=== PATIENT | male | born 1965 | race Caucasian/White ===

== ENCOUNTER 2017-03-02 13:41 | Emergency (ER) | payer BC ==
--- NOTE | 2017-03-02 13:50 | Emergency Department Record ---
History of Present Illness - General Chief complaint: Lower Extremity Pain Stated complaint: LOWER L LEG PAIN Time Seen by Provider: 03/02/17 13:44 Source: Patient Mode of Arrival: Ambulatory Limitations: No limitations - History of Present Illness Initial comments: 51 yo male presents from the [facility] with a concern about calf swelling and pain for several days on the left. He reports he had shoulder surgery in November and has been less active. He denies chest pain but he has noticed the last 2 weeks that he is short of breath with activity that he just started doing again. He has been fairly inactive since the surgery. In the last few weeks since starting some activity again he get short of breath easily. No fevers or chills. No history of DVT or CAD. MD Complaint: Extremity swelling -: Days(s) Location: Left -: Yes Myalgia Radiation: Distal Quality: Aching Consistency: Constant Improves with: Immobilization Worsens with: Exertion, Palpation, Walking, Weight bearing Associated Symptoms: Shortness of breath - Related Data Allergies Allergy/AdvReac Type Severity Reaction Status Date / Time codeine Allergy Intermediate vomiting Verified 03/02/17 13:52 Review of Systems Constitutional: Reports: Malaise. Denies: Chills, Fever Eyes: Denies: Eye discharge, Eye pain, Photophobia, Vision change ENT: Denies: Congestion, Throat pain Respiratory: Reports: Dyspnea. Denies: Cough, Hemoptysis, Wheezes Cardiovascular: Reports: Dyspnea on exertion, Palpitations. Denies: Chest pain , Syncope Endocrine: Reports: Fatigue Gastrointestinal: Denies: Abdominal pain, Diarrhea, Nausea, Vomiting Genitourinary: Denies: Dysuria, Frequency, Hematuria, Testicular mass Musculoskeletal: Reports: As per HPI, Myalgia. Denies: Arthralgia, Back pain, Joint swelling, Neck pain Skin: Denies: Bruising, Change in color, Rash Neurological: Denies: Numbness, Weakness Psychiatric: Denies: Anxiety Hematological/Lymphatic: Denies: Blood Clots, Easy bleeding, Easy bruising, Swollen glands Physical Exam - General General Appearance: Alert, Oriented x3, Cooperative, No acute distress Limitations: No limitations - Head Head exam: Normal inspection - Eye Eye exam: Normal appearance. negative: Conjunctival injection, Periorbital swelling - ENT ENT exam: Normal exam, Mucous membranes moist Ear exam: Normal external inspection Nasal Exam: Normal inspection Mouth exam: Normal external inspection - Neck Neck exam: Normal inspection - Respiratory Respiratory exam: Normal lung sounds bilaterally. negative: Respiratory distress - Cardiovascular Cardiovascular Exam: Normal rhythm, Normal heart sounds, Tachycardia Peripheral Pulses: 2+: Radial (R), Radial (L), Dorsalis Pedis (L) - GI/Abdominal GI/Abdominal exam: Soft. negative: Tenderness - Rectal Rectal exam: Deferred - exam: Deferred - Extremities Extremities exam: Calf tenderness (left), Full ROM, Normal capillary refill, Tenderness - Back Back exam: Reports: Normal inspection, Full ROM. Denies: Muscle spasm, Rash noted, Tenderness - Neurological Neurological exam: Alert, Normal gait, Oriented X3 - Psychiatric Psychiatric exam: Normal affect, Normal mood. negative: Agitated, Anxious - Skin Skin exam: Dry, Intact, Normal color, Warm Course - Reevaluation(s) Reevaluation #1: 03/02/17 14:14 No cute changes on the CBC or CMP 03/02/17 14:31 EKG 14:19 Sinus rhythm at 99, intervals normal, axis normal, Anterioir inverted T waves with Q wave in III 03/02/17 14:50 Troponin is normal with BNP elevated at 809. 03/02/17 15:14 CT with bilateral PE's throughout the lungs including both main right and left pulmonary arteries The patient will be transferred given the extent of emboli HR 100, BP 110's systolic. Resting comfortably [place] [facility] [place]02[place]17 15:31 I MADI Castro of [place] [facility] [place] patient for [place]. Medical Decision Making - Lab Data Result diagrams: 03/02/17 13:50 03/02/17 13:50 Disposition Disposition: Transfer Clinical Impression: Pulmonary emboli Qualifiers: Pulmonary embolism type: other Chronicity: acute Acute cor pulmonale presence: with acute cor pulmonale Qualified Code(s): I26.09 - Other pulmonary embolism with acute cor pulmonale Disposition: Acute Care Hospital [place] [facility] [place] For Transfer: PE, Bilateral Accepting Physician: Gloria Time Discussed w/Accepting Physician: 15:30 Condition: (3) Guarded Forms: Patient Portal Access Time of Disposition: 15:15 Quality - Quality Measures Quality Measures: N/A - Blood Pressure Screening Does Patient Have Any of the Following: No Blood Pressure Classification: Normal BP Reading Systolic Measurement: 111 Diastolic Measurement: 72 Screening for High Blood Pressure: < Normal BP, F/U Not Required > [G5839]
[2017-03-02 14:10] LABS: BASO % 0.2 % (0-6); EOS % 1.5 % (0-6); GRAN % 69.1 % (47-80); HEMOGLOBIN 15.6 gm/dl (14.0-18.0); LYMPH % 18.8 % (16-45); MEAN CELL VOLUME 89.3 fl (81-97); MEAN CORPUSCULAR HEMOGLOBIN 30.3 pg (27-33); MEAN CORPUSCULAR HGB CONC 33.9 g/dl (32-36); MEAN PLATELET VOLUME 10.5 fl (7.4-10.4); MONO % 10.4 % (0-9); PLATELET COUNT 144 K/uL (130-400); RED BLOOD COUNT 5.15 M/uL (4.40-5.70); RED CELL DISTRIBUTION WIDTH 12.7 % (11.5-14.5); WHITE BLOOD COUNT W/O DIFF 8.6 K/uL (4.2-12.2)
[2017-03-02 14:11] LABS: BLOOD UREA NITROGEN 9 mg/dL (6-20); EST GLOMERULAR FILTRATION RATE > 60 mL/min; GLUCOSE,RANDOM 117 mg/dL (74-109)
[2017-03-02 14:13] LABS: INR 1.07; PARTIAL THROMBOPLASTIN TIME 26.7 SECONDS (24.5-39.1); PROTHROMBIN TIME (PATIENT) 11.6 SECONDS (9.5-12.1)
[2017-03-02] MEDS ORDERED: ASPIRIN 81 MG CHEWABLE TABLET PO ONE (14:32)
[2017-03-02 14:46] LABS: TROPONIN I < 0.30 ng/mL (0.00-0.300)
[2017-03-02] MEDS ORDERED: HEPARIN SODIUM 1000 UNIT/1 ML 10ML VIAL IVP ONE (14:53)
[2017-03-02] MEDS ORDERED: HEPARIN SODIUM/D5W 25,000 UNITS/500 ML BAG IV SCH (15:00)
--- NOTE | 2017-03-03 14:55 | CT ANGIOGRAM REPORT ---
DATE: 03/02/2017. EXAM: CT ANGIOGRAM OF THE CHEST. HISTORY: Difficulty breathing. TECHNIQUE: CT angiogram of the chest was performed using pulmonary embolus protocol following intravenous administration of 85 mL of Omnipaque 350 contrast. Axial images were obtained with coronal and sagittal MIP reconstructions. COMPARISON: None. FINDINGS: Extensive filling defect consistent with extensive bilateral pulmonary emboli is present in the main pulmonary arteries as well as in bilateral upper and lower lobe arterial segments. The heart is mildly enlarged. No mediastinal or hilar adenopathy. Limited evaluation of the upper abdomen shows probable fatty infiltrative change to the liver. Osseous structures are grossly intact. No pneumothorax. The visualized airways are patent. The lungs are clear. IMPRESSION: EXTENSIVE BILATERAL PULMONARY EMBOLI. JOB NUMBER: [id number] [facility]
== END 2017-03-02 16:17 | disposition short-term general hospital (02) ==
LOC: ER 13:41
DX: I26.09 Other pulmonary embolism with acute cor pulmonale (principal); R06.02 Shortness of breath; I10 Essential (primary) hypertension
CPT/HCPCS: 99285; 96365; 96375; 99284; 85025; 85730; 85610; 84484; 80048; 83880; 71275; 93005; 93010; Q9967

== ENCOUNTER 2017-03-07 13:39 | Emergency (ER) | payer BC ==
--- NOTE | 2017-03-07 14:14 | Emergency Department Record ---
History of Present Illness - General Chief complaint: Lower Extremity Pain Stated complaint: LT CALF PAIN Time Seen by Provider: 03/07/17 13:57 Source: Patient, RN notes reviewed Mode of Arrival: Ambulatory - History of Present Illness Initial comments: patient compalianing about left calf and slight left medial thigh pain and mar 02, he was diagnosesd with bilateral PE and treated at [facility] and currently on xarelto 15 mg BID. patient states his breathing is good and that is better and the leg was painful also on mar 02 and he was told probably DVT of the left leg but treatment the same and he was concerned today because his leg is more painful today. patient used a norco last night and that helped his pain. Onset/Timin -: Days(s) Location: Left, Lower Leg Severity scale (1-10): 8 Quality: Aching, Dull Consistency: Constant Improves with: Nothing Worsens with: Nothing Associated Symptoms: Denies other symptoms - Related Data Home Medications Medication Instructions Recorded Confirmed Last Taken Rivaroxaban [Xarelto] 15 mg PO DAILY 03/07/17 03/07/17 Unknown Allergies Allergy/AdvReac Type Severity Reaction Status Date / Time codeine Allergy Intermediate vomiting Verified 03/02/17 13:52 Travel Screening - Travel/Exposure Within Last 30 Days Have you traveled within the last 30 days?: No Review of Systems Reviewed: No additional complaints except as noted below Constitutional: Reports: As per HPI. Denies: Chills, Fever, Malaise, Night sweats, Weakness, Weight change Eyes: Reports: As per HPI. Denies: Eye discharge, Eye pain, Photophobia, Vision change ENT: Reports: As per HPI. Denies: Congestion, Dental pain, Ear pain, Epistaxis , Hearing loss, Throat pain Respiratory: Reports: As per HPI. Denies: Cough, Dyspnea, Hemoptysis, Stridor, Wheezes Cardiovascular: Reports: As per HPI. Denies: Arrhythmia, Chest pain, Dyspnea on exertion, Edema, Murmurs, Orthopnea, Palpitations, Paroxysmal nocturnal dyspnea, Rheumatic Fever, Syncope Endocrine: Reports: As per HPI. Denies: Fatigue, Heat or cold intolerance, Polydipsia, Polyuria Gastrointestinal: Reports: As per HPI. Denies: Abdominal pain, Constipation, Diarrhea, Hematemesis, Hematochezia, Melena, Nausea, Vomiting Genitourinary: Reports: As per HPI. Denies: Dysuria, Frequency, Hematuria, Incontinence, Retention, Testicular pain, Testicular mass, Urgency Musculoskeletal: Reports: As per HPI, Other (left calf pain.). Denies: Arthralgia, Back pain, Gout, Joint swelling, Myalgia, Neck pain Skin: Reports: As per HPI. Denies: Bruising, Change in color, Change in hair/ nails, Lesions, Pruritus, Rash Neurological: Reports: As per HPI. Denies: Abnormal gait, Confusion, Headache, Numbness, Paresthesias, Seizure, Tingling, Tremors, Vertigo, Weakness Psychiatric: Reports: As per HPI. Denies: Anxiety, Auditory hallucinations, Depression, Homicidal thoughts, Suicidal thoughts, Visual hallucinations Hematological/Lymphatic: Reports: As per HPI. Denies: Anemia, Blood Clots, Easy bleeding, Easy bruising, Swollen glands Past Medical History - SOCIAL HISTORY Smoking Status: Never smoker Alcohol Use: None Drug Use: None - RESPIRATORY Hx Respiratory Disorders: Yes Hx Pulmonary Embolism: Yes Hx Sleep Apnea: Yes Hx of CPAP: Yes - CARDIOVASCULAR Hx Cardio Disorders: Yes Hx Hypertension: Yes - NEURO Hx Neuro Disorders: No - GI Hx GI Disorders: Yes Hx Hiatal Hernia: Yes - Hx Genitourinary Disorders: No - ENDOCRINE Hx Endocrine Disorders: No - MUSCULOSKELETAL Hx Musculoskeletal Disorders: No - PSYCH Hx Psych Problems: No - HEMATOLOGY/ONCOLOGY Hx Hematology/Oncology Disorders: No Family Medical History Any Significant Family History?: Yes Hx Cancer: Father, Grandparents Hx Stroke: Mother Physical Exam - General General Appearance: Alert, Oriented x3, Cooperative, No acute distress - Head Head exam: Normal inspection - Eye Eye exam: Normal appearance, PERRL Pupils: Normal accommodation - ENT ENT exam: Normal exam, Mucous membranes moist, Normal external ear exam, Normal orophraynx, TM's normal bilaterally Ear exam: Normal external inspection. negative: External canal tenderness Nasal Exam: Normal inspection. negative: Discharge, Sinus tenderness Mouth exam: Normal external inspection, Tongue normal Teeth exam: Normal inspection. negative: Dental caries Throat exam: Normal inspection. negative: Tonsillar erythema, Tonsillar exudate - Neck Neck exam: Normal inspection, Full ROM. negative: Tenderness - Respiratory Respiratory exam: Normal lung sounds bilaterally. negative: Respiratory distress - Cardiovascular Cardiovascular Exam: Regular rate, Normal rhythm, Normal heart sounds Peripheral Pulses: 2+: Dorsalis Pedis (L) - GI/Abdominal GI/Abdominal exam: Soft, Normal bowel sounds. negative: Tenderness - Rectal Rectal exam: Deferred - exam: Deferred - Extremities Extremities exam: Normal inspection, Full ROM, Normal capillary refill. negative: Tenderness - Back Back exam: Reports: Normal inspection, Full ROM. Denies: Muscle spasm, Rash noted, Tenderness - Neurological Neurological exam: Alert, Normal gait, Oriented X3, Reflexes normal - Psychiatric Psychiatric exam: Normal affect, Normal mood - Skin Skin exam: Dry, Intact, Normal color, Warm Course Vital Signs 03/07/17 13:48 Temperature 97.5 F L Pulse Rate 96 H Respiratory 20 Rate Blood Pressure 115/81 Pulse Ox 100 discussion with patient and told him most likely will be positive for a DVT and treatment the same and he still wanted the venous dopler. - Reevaluation(s) Reevaluation #1: No dyspnea and no chest pain 03/07/17 15:32 Reevaluation #2: Discussed finding with the patient and advised he elevate the leg and use norco for pain and keep appointment with Dr. Brunner. Advised if more SOB or chest pain return to the ED 03/07/17 15:49 Medical Decision Making - Data Complexity MDM Data: X-Ray Ordered and/or Reviewed (venous dopler poaitive DVT from common femeral to the knee) Disposition Clinical Impression: Leg pain, left Pulmonary emboli Qualifiers: Pulmonary embolism type: other Chronicity: acute Acute cor pulmonale presence: without acute cor pulmonale Qualified Code(s): I26.99 - Other pulmonary embolism without acute cor pulmonale DVT (deep venous thrombosis) Qualifiers: DVT location: lower extremity Affected thrombotic vein of extremity: femoral Chronicity: acute Laterality: left Qualified Code(s): I82.412 - Acute embolism and thrombosis of left femoral vein Disposition: Home, Self-Care Condition: (1) Good Instructions: Deep Vein Thrombosis Prevention (ED) Additional Instructions: follow up with Dr. Brunner as scheduled elevate leg return to ED if chest pain or Short of breath. continue xarelto 15 mg Twice a day Forms: Patient Portal Access Time of Disposition: 15:52 Quality - Quality Measures Quality Measures: N/A - Blood Pressure Screening Does Patient Have Any of the Following: No Blood Pressure Classification: Pre-Hypertensive BP Reading Systolic Measurement: 115 Diastolic Measurement: 81 Screening for High Blood Pressure: < Pre-Hypertensive BP, F/U Documented > [ G8950] Pre-Hypertensive Follow-up Interventions: Referral to alternative/primary care provider.
--- NOTE | 2017-03-08 19:53 | US VENOUS DOPPLER REPORT ---
EXAM: ULTRASOUND VENOUS DOPPLER LOWER EXT LT HISTORY: LT CALF PAIN. TECHNIQUE: Cantu scale, color Doppler, and duplex Doppler evaluation of the deep venous structures of the left lower extremity from the level of the common femoral vein into the lower legs. COMPARISON: No prior examination for comparison. FINDINGS: There is medium-level echo material noted within the mid to lower left common femoral vein, throughout the left superficial femoral vein and popliteal vein with questionable extension into the posterior tibial vein. These segments are noncompressible or incompletely compressible. There is absence of blood flow throughout much of the superficial femoral vein. Venous flow is noted in the distal aspect of the left superficial femoral vein, though there is absence of normal phasicity and augmentation. Blood flow is demonstrated in the popliteal vein, though the venous waveform is absent of phasicity. A small amount of augmentation is questioned. The deep femoral vein and greater saphenous veins appear patent, as does the proximal/upper common femoral vein. The peroneal veins and anterior tibial veins appear patent. IMPRESSION: FINDINGS CONSISTENT WITH DEEP VENOUS THROMBOSIS WITHIN THE DISTAL/INFERIOR ASPECT OF THE LEFT COMMON FEMORAL VEIN THROUGH THE POPLITEAL VEIN AND PARTIALLY WITHIN THE POSTERIOR TIBIAL VEIN. JOB NUMBER: [id number] [facility]
== END 2017-03-07 16:18 | disposition home or self-care (01) ==
LOC: ER 13:39
DX: I82.412 Acute embolism and thrombosis of left femoral vein (principal); Z79.01 Long term (current) use of anticoagulants; I10 Essential (primary) hypertension; Z86.711 Personal history of pulmonary embolism
CPT/HCPCS: 99283